=== PATIENT | female | born 1965 | race African-American/Black ===

== ENCOUNTER 2024-03-07 12:28 | Emergency (ER) | payer SELFPAY ==
[~2024-03-07] VITALS: Ht 167.6 cm; Wt 68.0 kg
[2024-03-07 12:37] VITALS: BP 144/78; PULSE 67; TEMP 98.4; O2SAT 100
[2024-03-07] MEDS ORDERED: IBUP-2029 MT (15:04)
[2024-03-07 15:12] VITALS: RESP 16
[2024-03-07] MEDS: IBUPROFEN 600MG TABLET PO ONE (15:12)
== END 2024-03-07 15:44 | disposition home or self-care (01) ==
LOC: ER 12:28
DX: S16.1XXA Strain of muscle, fascia and tendon at neck level, initial encounter (principal); S39.012A Strain of muscle, fascia and tendon of lower back, initial encounter; K21.9 Gastro-esophageal reflux disease without esophagitis; I10 Essential (primary) hypertension; V98.8XXA Other specified transport accidents, initial encounter; Y93.89 Activity, other specified; Y92.89 Other specified places as the place of occurrence of the external cause; Y99.8 Other external cause status
CPT/HCPCS: 99282